=== PATIENT | female | born 2000 | race Caucasian/White ===

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

== ENCOUNTER 2022-03-27 06:16 | Inpatient (IN) | payer OTHER ==
--- NOTE | 2022-03-27 13:19 | PR ---
[facility] [address] [facility] [place] [address] Signed Progress Notes IP Datetime Report Generated by CPN: 03/27/2022 13:19 PROGRESS NOTES: [id number] Impression: Normal Progression of Labor Procedures: Artificial ROM Plan: Continue Present Management; Anticipate Vaginal Delivery VITAL SIGNS: [id number] Vital Signs: Reviewed; Within Normal Limits EXAM: [id number] Dilatation: 4.0 Effacement: 50 Station: -3 Contractions: rare MEMBRANES: [id number] Membranes Status: Ruptured Comments: Continue monitoring. Will want Epidural soon. FETUS A: [id number] FHR Baseline: 140 Variability: Moderate 6-25bpm Accelerations: 15X15 FETUS B: [id number] Signing Physician: Les Flor MD Copies: ~ *Electronically Signed* 03/27/22 1319 LES FLOR MD PATIENT NAME: JUAN CARLOS MURDOCK PROGRESS NOTE DATE OF : 02 PHYSICIAN: LES FLOR MD RPT #: [id number] REPORT IS CONFIDENTIAL AND NOT TO BE RELEASED WITHOUT AUTHORIZATION
--- NOTE | 2022-03-28 08:20 | PR ---
[facility] [address] [facility] [place], [place] [address] Signed PP Progress Notes Datetime Report Generated by CPN: 03/28/2022 08:20 SUBJECTIVE: [id number] Pain: Within Normal Limits Nausea/Vomiting: Denies Flatus: Yes Vital Signs: [id number] Vital Signs: Reviewed; Within Normal Limits EXAM: Ongoing Cardiovascular: Normal Respiratory: Normal Abdomen/Uterus: Normal Lochia: Normal Vulva/Perineum: Not Done Breasts: Not Done CVA Tenderness: Normal Extremities: Normal Incision: Not Applicable Progress: Normal Exam Comments: Fundus firm U-2 nontender Hgb 8.7 IMPRESSION/PLAN/PROCEDURES: [id number] Impression: Normal Progression Other Impression: Acute blood loss anemia Plan: Discharge Progress Notes: Pt seen and examined. Doing well. Ambulating, voiding, and tolerating full diet. Pain and lochia minimal. well. No fevers/chills or other concerns. Hgb 8.7 this AM. Pt desires d/c. Reviewed discharge instructions and medications in detail. Planning micronor for pp contraception. Signing Physician: Nicolas Reyna DO Copies: ~ *Electronically Signed* 03/28/22819 NICOLAS REYNA DO PATIENT NAME: JUAN CARLOS MURDOCK PROGRESS NOTE DATE OF : 02 PHYSICIAN: NICOLAS REYNA DO RPT #: [id number] REPORT IS CONFIDENTIAL AND NOT TO BE RELEASED WITHOUT AUTHORIZATION
== END 2022-03-28 14:55 | disposition home or self-care (01) | DRG 806 ==
LOC: FBC 06:16
PROVIDERS: ADMIT General Practice; ATTEND General Practice
PROC: 10E0XZZ Delivery of Products of Conception, External Approach (ICD-10-PCS; principal; 2022-03-27)
PROC: 0KQM0ZZ Repair Perineum Muscle, Open Approach (ICD-10-PCS; 2022-03-27)
PROC: 10907ZC Drainage of Amniotic Fluid, Therapeutic from Products of Conception, Via Natural or Artificial Opening (ICD-10-PCS; 2022-03-27)
PROC: 3E0P7VZ Introduction of Hormone into Female Reproductive, Via Natural or Artificial Opening (ICD-10-PCS; 2022-03-27)
PROC: 00HU33Z Insertion of Infusion Device into Spinal Canal, Percutaneous Approach (ICD-10-PCS; 2022-03-27)
PROC: 3E0R3BZ Introduction of Anesthetic Agent into Spinal Canal, Percutaneous Approach (ICD-10-PCS; 2022-03-27)
DX: O24.420 Gestational diabetes mellitus in childbirth, diet controlled (principal); D62 Acute posthemorrhagic anemia; Z37.0 Single live birth; O90.81 Anemia of the puerperium; O77.0 Labor and delivery complicated by meconium in amniotic fluid; O99.824 Streptococcus B carrier state complicating childbirth; O70.1 Second degree perineal laceration during delivery; Z3A.39 39 weeks gestation of pregnancy; O69.81X0 Labor and delivery complicated by cord around neck, without compression, not applicable or unspecified; O99.334 Smoking (tobacco) complicating childbirth; F17.210 Nicotine dependence, cigarettes, uncomplicated
CPT/HCPCS: 01960; 36415; 85027; 85060; 86850; 86900; 86901; A9270; J2540; J2590; J3010

== ENCOUNTER 2023-07-16 23:52 | Inpatient (IN) | payer OTHER ==
[~2023-07-16] VITALS: Ht 165.1 cm; Wt 103.9 kg
[2023-07-17 00:52] LABS: HEMATOCRIT 33.4 % (35.0-50.0); HEMOGLOBIN 11.2 g/dL (12.0-18.0); MCH 25.2 (27-36); MCHC 33.6 g/dl (30-36); RBC 4.46 M/ul (4.3-5.7); RDW 17.3 (10.5-15.0)
[2023-07-17 01:17] LABS: AMPHETAMINES, UR NEGATIVE (NEGATIVE); BARBITURATES, UR NEGATIVE (NEGATIVE); BENZODIAZEPINES, UR NEGATIVE (NEGATIVE); BUPRENORPHINE,UR NEGATIVE (NEGATIVE); COCAINE, UR NEGATIVE (NEGATIVE); MARIJUANA (THC), UR NEGATIVE (NEGATIVE); MDMA, UR NEGATIVE (NEGATIVE); METHADONE, UR NEGATIVE (NEGATIVE); METHAMPHETAMINE, UR NEGATIVE (NEGATIVE); OPIATES, UR NEGATIVE (NEGATIVE); OXYCODONE, UR NEGATIVE (NEGATIVE); PHENCYCLIDINE, UR NEGATIVE (NEGATIVE); TRICYCLIC ANTIDEPRESSANT, UR NEGATIVE (NEGATIVE)
[2023-07-17 01:34] LABS: ABO O; ANTIBODY SCREEN NEGATIVE; RH POSITIVE
--- NOTE | 2023-07-17 03:30 | PR ---
[facility] [address] [place], [place] [address] Signed Progress Notes IP Datetime Report Generated by CPN: 07/17/2023 03:30 PROGRESS NOTES: [id number] Impression: Normal Progression of Labor; Reassuring Heart Rate Procedures: Artificial ROM; Sterile Vag Exam Plan: Continue Present Management; Anticipate Vaginal Delivery Informed Consent Obtain: Vaginal Delivery VITAL SIGNS: [id number] Vital Signs: Reviewed; Within Normal Limits EXAM: [id number] Dilatation: 5.0 Effacement: 70 Station: -3 Contractions: q 1-2 min MEMBRANES: [id number] Comments: Pt seen and examined. Doing well. Comfortable w/ epidural. On exam, pt 5/70 w/ bulging bag of fontenot. Discussed AROM and pt desires. AROM easily performed for moderate amount of clear fluid. Reviewed anticipated course of labor/delivery. All questions answered. FETUS A: [id number] FHR Baseline: 150 Variability: Moderate 6-25bpm Accelerations: None Decelerations: None FHR Category: Category I Presentation: Vertex Comments on Fetus A: No evidence of metabolic acidosis FETUS B: [id number] Signing Physician: Nicolas Hernández DO Copies: ~ *Electronically Signed* 07/17/23 033 NICOLAS HERNÁNDEZ (MARY) DO PATIENT NAME: JUAN CARLOS MURDOCK PROGRESS NOTE DATE OF : 02 PHYSICIAN: NICOLAS HERNÁNDEZ (JD) DO RPT #: [id number] REPORT IS CONFIDENTIAL AND NOT TO BE RELEASED WITHOUT AUTHORIZATION
[2023-07-17 06:06] VITALS: BP 116/66
[2023-07-18 05:33] LABS: HEMATOCRIT 31.2 % (35.0-50.0); HEMOGLOBIN 10.4 g/dL (12.0-18.0); MCH 25.2 (27-36); MCHC 33.2 g/dl (30-36); MCV 75.8 fl (81-99); RBC 4.12 M/ul (4.3-5.7); RDW 17.9 (10.5-15.0)
--- NOTE | 2023-07-18 09:13 | PR ---
[facility] [address] [facility] [place] [place] [address] Signed PP Progress Notes Datetime Report Generated by CPN: 07/18/2023 09:13 SUBJECTIVE: [id number] Pain: Within Normal Limits Nausea/Vomiting: Denies Flatus: Yes Bowel Movement: No Vital Signs: [id number] Vital Signs: Reviewed; Within Normal Limits Cardiovascular: Normal Respiratory: Normal Abdomen/Uterus: Normal Lochia: Normal CVA Tenderness: Normal Extremities: Normal Incision: Not Applicable Progress: Normal Exam Comments: Fundus firm U-2 nontender IMPRESSION/PLAN/PROCEDURES: [id number] Impression: Normal Progression Plan: Discharge Progress Notes: Pt seen and examined. Doing well. Ambulating, voiding, and tolerating full diet. Pain and lochia minimal. well. No concerns. Desires d/c home. Reviewed instructions in detail. F/U 2 wks Signing Physician: Nicolas Reyna DO Copies: ~ *Electronically Signed* 07/18/23912 NICOLAS REYNA (MARY) DO PATIENT NAME: MURDOCKJUAN CARLOS PROGRESS NOTE DATE OF : 02 PHYSICIAN: NICOLAS REYNA (MARY) DO RPT #: [id number] REPORT IS CONFIDENTIAL AND NOT TO BE RELEASED WITHOUT AUTHORIZATION
== END 2023-07-18 09:35 | disposition home or self-care (01) | DRG 807 ==
LOC: FBCO 23:52 → FBC 07-17 00:12
PROVIDERS: ADMIT Obstetrics & Gynecology; ATTEND Obstetrics & Gynecology
PROC: 10E0XZZ Delivery of Products of Conception, External Approach (ICD-10-PCS; principal; 2023-07-17)
PROC: 10907ZC Drainage of Amniotic Fluid, Therapeutic from Products of Conception, Via Natural or Artificial Opening (ICD-10-PCS; 2023-07-17)
PROC: 3E0R3BZ Introduction of Anesthetic Agent into Spinal Canal, Percutaneous Approach (ICD-10-PCS; 2023-07-17)
PROC: 00HU33Z Insertion of Infusion Device into Spinal Canal, Percutaneous Approach (ICD-10-PCS; 2023-07-17)
DX: O99.824 Streptococcus B carrier state complicating childbirth (principal); Z37.0 Single live birth; O76 Abnormality in fetal heart rate and rhythm complicating labor and delivery; Z3A.38 38 weeks gestation of pregnancy; O69.81X0 Labor and delivery complicated by cord around neck, without compression, not applicable or unspecified; O99.334 Smoking (tobacco) complicating childbirth; F17.210 Nicotine dependence, cigarettes, uncomplicated
CPT/HCPCS: 36415; 80307; 85027; 86850; 86900; 86901; A9270; J2540; J2590; J7121

== ENCOUNTER 2024-09-13 16:33 | Emergency (ER) | payer OTHER ==
[~2024-09-13] VITALS: Ht 152.4 cm; Wt 98.0 kg
[2024-09-13 16:58] LABS: BASOPHILS 0.6 % (0-2); HEMATOCRIT 38.5 % (35.0-50.0); HEMOGLOBIN 13.3 g/dL (12.0-18.0); MCH 27.7 (27-36); MCHC 34.5 g/dl (30-36); MCV 80.3 fl (81-99); MONOCYTES 11.4 % (0-12); PLATELET COUNT 274 K/uL (140-440); RDW 13.4 (10.5-15.0)
[2024-09-13] MEDS ORDERED: HYDROmorphone HCL 1 MG/ML SYR IV PRN (17:00)
[2024-09-13] MEDS ORDERED: ondansetron HCL 4 MG/2 ML VIAL IV ONE (17:00)
[2024-09-13] MEDS ORDERED: KETOROLAC TROMETHAMINE 30 MG/ML VIAL IV ONE (17:00)
[2024-09-13] MEDS ORDERED: SODIUM CHLORIDE 0.9% 1,000 ML IV ONE (17:00)
[2024-09-13 17:10] LABS: ALBUMIN 4.1 g/dL (3.4-5.0); ALBUMIN/GLOBULIN RATIO 1.17 (1.1-2.4); ANION GAP 17.3 (7-21); BILIRUBIN, TOTAL 0.3 mg/dL (0.2-1.0); BUN/CREATININE RATIO 11.47 (6.0-28.6); CALCIUM 9.1 mg/dL (8.5-10.1); CREATININE, SERUM 0.61 mg/dL (0.55-1.02); POTASSIUM 3.3 mmol/L (3.5-5.1); PROTEIN, TOTAL 7.6 g/dL (6.4-8.2)
[2024-09-13 19:02] VITALS: BP 117/72
== END 2024-09-13 19:04 | disposition home or self-care (01) ==
LOC: ED 16:33
PROVIDERS: Emergency Medicine
DX: J10.1 Influenza due to other identified influenza virus with other respiratory manifestations (principal); H53.8 Other visual disturbances; F17.200 Nicotine dependence, unspecified, uncomplicated; Z88.0 Allergy status to penicillin; Z88.1 Allergy status to other antibiotic agents
CPT/HCPCS: 36415; 80053; 85025; 96374; 96375; 99284-25; J1171; J1885; J2405; J7030

== ENCOUNTER 2025-05-10 13:30 | Emergency (ER) | payer OTHER ==
[~2025-05-10] VITALS: Ht 152.4 cm; Wt 87.4 kg
[2025-05-10] MEDS ORDERED: PREDNISONE20 MG PO (13:42)
[2025-05-10] MEDS ORDERED: BENADRYL ALLERG25 MG PO (13:43)
[2025-05-10] MEDS ORDERED: PROBIOTIC1 EAC2 PO (13:43)
[2025-05-10 13:50] LABS: BASOPHILS 0.2 % (0.1-1.2); EOSINOPHILS 0.1 % (0.7-5.8); LYMPHOCYTES 10.7 % (19.3-51.7); MCH 27.4 PG (25.6-32.2); MCHC 32.7 g/dL (32.2-35.5); MCV 83.8 fL (79.4-94.8); MONOCYTES 2.5 % (4.7-12.5); NEUTROPHILS 86.1 % (34.0-71.1); RBC 5.07 M/uL (3.93-5.22)
[2025-05-10 14:10] LABS: ALT (SGPT) 15 U/L (14-59); AST (SGOT) 10 U/L (15-37); GLOMERULAR FILTRATION RATE,EST 121 mL/min (>60); PROTEIN, TOTAL 7.8 g/dL (6.4-8.2); UREA NITROGEN 9 mg/dL (7-18)
--- NOTE | 2025-05-10 15:08 | EKG ---
[facility] [address] [facility] [place], [place] [address] Signed Normal sinus rhythm with sinus arrhythmia Possible Anterior infarct , age undetermined Abnormal ECG No previous ECGs available Confirmed by VIMAL ZHAO MD ([id number]) on 05/10/2025 3:08:48 PM Electronically Signed By: VIMAL ZHAO 05/10/25 1508 PATIENT NAME: JUAN CARLOS MURDOCK Electrocardiogram DATE OF : 02 PHYSICIAN: VIMAL ZHAO REPORT #: [id number] REPORT IS CONFIDENTIAL AND NOT TO BE RELEASED WITHOUT AUTHORIZATION
[2025-05-10] MEDS ORDERED: HYDROXYZINE HCL25 MG PO (15:28)
[2025-05-10] MEDS ORDERED: SINGULAIR10 MG PO (15:28)
[2025-05-10 15:40] VITALS: BP 130/76
== END 2025-05-10 15:32 | disposition home or self-care (01) ==
LOC: ED 13:30
PROVIDERS: Emergency Medicine
DX: L50.9 Urticaria, unspecified (principal); Z79.52 Long term (current) use of systemic steroids; Z79.899 Other long term (current) drug therapy; F17.200 Nicotine dependence, unspecified, uncomplicated; Z88.1 Allergy status to other antibiotic agents
CPT/HCPCS: 36415; 71045; 80053; 83735; 84484; 85025; 93005; 93010; 96372; 99285-25; J0166; Q0177